=== PATIENT | female | born 1990 | race American Indian/Alaskan Native ===

== ENCOUNTER 2017-11-01 07:53 | Emergency (ER) | payer SELFPAY ==
[2017-11-01] MEDS ORDERED: DUONEB *Not for PRN Use IH ONE ×2 (07:59→08:08)
[2017-11-01 08:08] VITALS: BP 125/70
--- NOTE | 2017-11-01 09:28 | Emergency Department Report ---
ED Asthma HPI - General Chief Complaint: Adult Asthma Stated Complaint: ASTHMA Time Seen by Provider: 11/01/17 08:42 Source: patient Mode of arrival: Ambulatory Limitations: No Limitations - History of Present Illness Initial Comments: This is a 27-year-old -English female who presents with wheezing and shortness of breath for 2 days. Patient has a past medical history of asthma and seasonal allergies. Patient states she felt congestion about 3-4 days ago and started taking Mucinex which improved symptoms for 1 day. Patient states she woke up 2 days ago coughing and feeling short of breath. She is visiting from [place] and ran out of albuterol inhaler this morning. She decided to come in for breathing treatment and for refills of medication. Patient denies fever, chest pain, and nausea or vomiting. MD Complaint: shortness of breath, wheezing Onset/Timin -: days(s) Asthma History: childhood onset, history of prior ED visit Severity: mild Context: ran out of meds, allergen exposure Associated Symptoms: dry cough. denies: productive cough, fever, chest pain, hemoptysis, leg edema, syncope - Related Data Current Asthma Therapy: inhaled bronchodilator Previous Rx's Medication Instructions Recorded Last Taken Type ALBUTEROL Inhaler [ProAir HFA 1 puff IH Q4-6H PRN #1 inha 11/01/17 Unknown Rx Inhaler] Cetirizine HCl [All Day Allergy] 10 mg PO DAILY #30 tablet 11/01/17 Unknown Rx Prednisone [predniSONE 10 mg 10 mg PO .TAPER #1 tab.ds.pk 11/01/17 Unknown Rx (6-Day Pack, 21 Tabs)] Allergies Allergy/AdvReac Type Severity Reaction Status Date / Time No Known Allergies Allergy Verified 11/01/17 08:08 ED Review of Systems ROS: Stated complaint: ASTHMA Other details as noted in HPI Constitutional: denies: chills, fever ENT: congestion. denies: ear pain, throat pain, dental pain, hearing loss, epistaxis Respiratory: cough. denies: shortness of breath, wheezing Cardiovascular: denies: chest pain, palpitations Gastrointestinal: denies: abdominal pain, nausea, vomiting, diarrhea Neurological: denies: headache, weakness, numbness, paresthesias Psychiatric: denies: anxiety, depression ED Past Medical Hx - Past Medical History Previous Medical History?: Yes Hx Asthma: Yes - Surgical History Past Surgical History?: No - Social History Smoking Status: Never Smoker Substance Use Type: None - Medications Home Medications: Home Medications Medication Instructions Recorded Confirmed Last Taken Type ALBUTEROL Inhaler [ProAir HFA 1 puff IH Q4-6H PRN #1 inha 11/01/17 Unknown Rx Inhaler] Cetirizine HCl [All Day Allergy] 10 mg PO DAILY #30 tablet 11/01/17 Unknown Rx Prednisone [predniSONE 10 mg 10 mg PO .TAPER #1 tab.ds.pk 11/01/17 Unknown Rx (6-Day Pack, 21 Tabs)] ED Physical Exam - General Limitations: No Limitations General appearance: alert, in no apparent distress - ENT ENT exam: Present: mucous membranes moist, other (turbinates mildly congested with clear discharge) - Respiratory Respiratory exam: Present: wheezes. Absent: respiratory distress, rales, rhonchi, stridor, chest wall tenderness, accessory muscle use - Cardiovascular Cardiovascular Exam: Present: regular rate, normal rhythm. Absent: systolic murmur, diastolic murmur, rubs, gallop - GI/Abdominal GI/Abdominal exam: Present: soft, normal bowel sounds. Absent: organomegaly, mass - Neurological Exam Neurological exam: Present: alert, oriented X3 - Psychiatric Psychiatric exam: Present: normal affect, normal mood - Skin Skin exam: Present: warm, dry, intact, normal color. Absent: rash ED Course Vital Signs 11/01/17 08:06 Temperature 98 F Pulse Rate 89 Respiratory 22 Rate Blood Pressure 125/70 O2 Sat by Pulse 96 Oximetry ED Medical Decision Making - Medical Decision Making 27 y.o. female that presents with SOB and wheezing for 2 days. History of Asthma. Patient is a visitor from [place] and ran out of inhaler. Patient examined by me and in slight distress. Vitals are normal. Given duoneb treatment once and Solu-medrol 40 mg IM once in ER. Wheezes resolved and sat 96 % on room air. Asthma exacerbation, Start albuterol, prednisone taper, and ceterizine. Discharged home stable. No medication ordered. Return to work tomorrow. Critical care attestation.: If time is entered above; I have spent that time in minutes in the direct care of this critically ill patient, excluding procedure time. ED Disposition Clinical Impression: Asthma Qualifiers: Asthma severity: mild Asthma persistence: intermittent Asthma complication type : with acute exacerbation Qualified Code(s): J45.21 - Mild intermittent asthma with (acute) exacerbation Asthma exacerbation Qualifiers: Asthma severity: mild Asthma persistence: intermittent Qualified Code(s): J45.21 - Mild intermittent asthma with (acute) exacerbation Disposition: TO HOME OR SELFCARE Is pt being admited?: No Does the pt Need Aspirin: No Condition: Stable Instructions: Asthma (ED) Additional Instructions: It is important to use inhaler or have active albuterol inhaler and avoiding asthma triggers. Complete full course of prednisone steroids as prescribed. Follow up with Primary Care Provider in 24-72 hours. Prescriptions: ALBUTEROL Inhaler [ProAir HFA Inhaler] 1 puff IH Q4-6H PRN #1 inha PRN Reason: Shortness Of Breath Cetirizine HCl [All Day Allergy] 10 mg PO DAILY #30 tablet Prednisone [predniSONE 10 mg (6-Day Pack, 21 Tabs)] 10 mg PO .TAPER #1 tab.ds.pk Referrals: [facility]– [place] [Outside] - 3-5 Days [facility] [Outside] - 3-5 Days [facility] [Outside] - 3-5 Days Time of Disposition: 09:32 Print Language: KYRGYZ
[2017-11-01] MEDS ORDERED: SOLU-Medrol IM ONE (09:29)
== END 2017-11-01 10:21 | disposition home or self-care (01) ==
LOC: ED 07:53
DX: J45.21 Mild intermittent asthma with (acute) exacerbation (principal)
CPT/HCPCS: 94640; 96372; 99282; J2920

== ENCOUNTER 2017-11-07 16:44 | Emergency (ER) | payer SELFPAY ==
[2017-11-07 17:13] VITALS: BP 119/90
[2017-11-07] MEDS ORDERED: DUONEB *Not for PRN Use IH ONE (17:15)
== END 2017-11-07 21:08 | disposition left against medical advice (07) ==
LOC: ED 16:44
DX: J06.9 Acute upper respiratory infection, unspecified (principal); Z53.21 Procedure and treatment not carried out due to patient leaving prior to being seen by health care provider
CPT/HCPCS: 94640

== ENCOUNTER 2018-04-12 04:13 | Inpatient (IN) | payer SELFPAY ==
[~2018-04-12 04:13] MED LIST: AMIDATE IV ONE; QUELICIN ONE; VERSED IV ONE
[2018-04-12] MEDS ORDERED: DECADRON ONE (04:28)
[2018-04-12] MEDS ORDERED: VASELINE LIP THERAPY TP PRN (04:31)
[2018-04-12] MEDS ORDERED: ARTIFICIAL TEARS OPHTH OINT OU PRN (04:31)
[2018-04-12] MEDS ORDERED: PROVENTIL IH ONE ×2 (04:34→05:18)
[2018-04-12] MEDS ORDERED: ATROVENT IH ONE (04:34)
--- NOTE | 2018-04-12 04:38 | Emergency Department Report ---
ED General Adult HPI - General Chief complaint: Dyspnea/Respdistress Stated complaint: SUNDEEP Time Seen by Provider: 04/12/18 04:30 Source: family, EMS Mode of arrival: Stretcher Limitations: No Limitations - History of Present Illness Initial comments: Niels is a 28-year-old female past medical history of asthma who presents with respiratory failure. History is limited due to patient's condition. EMS states that patient had an asthma attack she got albuterol and mag in route. Patient is accompanied by her mother. Severity scale (0 -10): 0 - Related Data Previous Rx's Medication Instructions Recorded Last Taken Type ALBUTEROL Inhaler (OR & NICU) 1 puff IH Q4-6H PRN #1 inha 11/01/17 Unknown Rx [ProAir HFA Inhaler] Cetirizine HCl [All Day Allergy] 10 mg PO DAILY #30 tablet 11/01/17 Unknown Rx Prednisone [predniSONE 10 mg 10 mg PO .TAPER #1 tab.ds.pk 11/01/17 Unknown Rx (6-Day Pack, 21 Tabs)] Allergies Allergy/AdvReac Type Severity Reaction Status Date / Time methylprednisolone Allergy Hives Verified 04/12/18 04:33 [From Solu-Medrol] Penicillins Allergy Hives Verified 11/07/17 17:10 ED Review of Systems ROS: Stated complaint: SUNDEEP Other details as noted in HPI Comment: Unobtainable due to pts medical conditions Endocrine: no symptoms reported ED Past Medical Hx - Past Medical History Previous Medical History?: Yes Hx Asthma: Yes - Surgical History Past Surgical History?: No - Social History Smoking Status: Current Some Day Smoker Substance Use Type: Alcohol - Medications Home Medications: Home Medications Medication Instructions Recorded Confirmed Last Taken Type ALBUTEROL Inhaler (OR & NICU) 1 puff IH Q4-6H PRN #1 inha 11/01/17 Unknown Rx [ProAir HFA Inhaler] Cetirizine HCl [All Day Allergy] 10 mg PO DAILY #30 tablet 11/01/17 Unknown Rx Prednisone [predniSONE 10 mg 10 mg PO .TAPER #1 tab.ds.pk 11/01/17 Unknown Rx (6-Day Pack, 21 Tabs)] ED Physical Exam - General Limitations: No Limitations General appearance: obtunded - Head Head exam: Present: atraumatic, normocephalic - Eye Eye exam: Present: normal appearance - ENT ENT exam: Present: other (blood in oral airway ) - Neck Neck exam: Present: normal inspection - Respiratory Respiratory exam: Present: other (diminished breath sound bilaterally) - Cardiovascular Cardiovascular Exam: Present: tachycardia - GI/Abdominal GI/Abdominal exam: Present: soft - Extremities Exam Extremities exam: Present: normal inspection - Back Exam Back exam: Present: normal inspection - Neurological Exam Neurological exam: Present: other (obtunded ) - Psychiatric Psychiatric exam: Present: other (unable to assess) - Skin Skin exam: Present: warm, dry, intact ED Course Vital Signs 04/12/18 04/12/18 04/12/18 04:13 04:15 04:26 Temperature Pulse Rate 103 H 103 H Pulse Rate [ Anterior Bilateral Throughout] Respiratory 24 Rate Respiratory Rate [Anterior Bilateral Throughout] Blood Pressure 149/82 149/82 Blood Pressure 149/82 [Left] O2 Sat by Pulse 98 78 L 77 L Oximetry 04/12/18 04/12/18 04/12/18 04:30 04:46 05:00 Temperature Pulse Rate 82 116 H 124 H Pulse Rate [ 105 H Anterior Bilateral Throughout] Respiratory 9 L 26 H 28 H Rate Respiratory 25 H Rate [Anterior Bilateral Throughout] Blood Pressure 149/82 149/82 Blood Pressure [Left] O2 Sat by Pulse 94 99 93 Oximetry 04/12/18 04/12/18 04/12/18 05:15 05:30 05:45 Temperature Pulse Rate 130 H 139 H 128 H Pulse Rate [ Anterior Bilateral Throughout] Respiratory 28 H 32 H 23 Rate Respiratory Rate [Anterior Bilateral Throughout] Blood Pressure 122/70 142/89 121/77 Blood Pressure [Left] O2 Sat by Pulse 100 96 Oximetry 04/12/18 04/12/18 04/12/18 06:00 06:15 06:20 Temperature 98.0 F Pulse Rate 130 H 135 H Pulse Rate [ Anterior Bilateral Throughout] Respiratory 25 H 26 H Rate Respiratory Rate [Anterior Bilateral Throughout] Blood Pressure 129/73 132/85 Blood Pressure [Left] O2 Sat by Pulse 100 96 100 Oximetry 04/12/18 04/12/18 04/12/18 06:30 06:45 07:00 Temperature Pulse Rate 128 H 127 H 125 H Pulse Rate [ Anterior Bilateral Throughout] Respiratory 26 H 16 26 H Rate Respiratory Rate [Anterior Bilateral Throughout] Blood Pressure 133/79 136/81 134/78 Blood Pressure [Left] O2 Sat by Pulse 99 100 99 Oximetry 04/12/18 04/12/18 04/12/18 07:16 07:28 07:30 Temperature Pulse Rate 124 H 117 H 114 H Pulse Rate [ Anterior Bilateral Throughout] Respiratory 18 14 Rate Respiratory Rate [Anterior Bilateral Throughout] Blood Pressure 132/85 132/85 Blood Pressure [Left] O2 Sat by Pulse 100 100 Oximetry 04/12/18 04/12/18 04/12/18 07:47 08:00 08:12 Temperature Pulse Rate 118 H Pulse Rate [ 115 H Anterior Bilateral Throughout] Respiratory 28 H Rate Respiratory 20 Rate [Anterior Bilateral Throughout] Blood Pressure 129/87 Blood Pressure [Left] O2 Sat by Pulse 99 Oximetry - Intubation Time Out Performed: Yes Sedative: Etomidate Paralytic: Succinylcholine Laryngoscope: Ayden Size: 3 ET Tube Size: 7.5 Tube Secured Depth (cm): 22 Tube Secured Location: lips Tube Placement Confirmation: visualized tube passing t, equal breath sounds bilat, no breath sounds over epi Patient Tolerated Procedure: no complications Intubation Complications: other (ventilation machine wasn't working ) ED Medical Decision Making - Lab Data Result diagrams: 04/12/18 04:28 04/12/18 04:28 Lab Results 04/12/18 04/12/18 04/12/18 Range/Units 04:28 04:28 05:16 WBC 11.9 H (4.5-11.0) K/mm3 RBC 4.65 (3.65-5.03) M/mm3 Hgb 14.7 H (10.1-14.3) gm/dl Hct 44.5 H (30.3-42.9) % MCV 96 (79-97) fl MCH 32 (28-32) pg MCHC 33 (30-34) % RDW 14.0 (13.2-15.2) % Plt Count 325 (140-440) K/mm3 Lymph # Parallel Computing Software Engineer Add Manual Diff Complete Total Counted 100 Seg Neuts % (Manual) 42.0 (40.0-70.0) % Band Neutrophils % 0 % Lymphocytes % (Manual) 43.0 H (13.4-35.0) % Reactive Lymphs % (Man) 0 % Monocytes % (Manual) 8.0 H (0.0-7.3) % Eosinophils % (Manual) 7.0 H (0.0-4.3) % Basophils % (Manual) 0 (0.0-1.8) % Metamyelocytes % 0 % Myelocytes % 0 % Promyelocytes % 0 % Blast Cells % 0 % Nucleated RBC % Not Reportable Seg Neutrophils # Man 5.0 (1.8-7.7) K/mm3 Band Neutrophils # 0.0 K/mm3 Lymphocytes # (Manual) 5.1 (1.2-5.4) K/mm3 Abs React Lymphs (Man) 0.0 K/mm3 Monocytes # (Manual) 1.0 H (0.0-0.8) K/mm3 Eosinophils # (Manual) 0.8 H (0.0-0.4) K/mm3 Basophils # (Manual) 0.0 (0.0-0.1) K/mm3 Metamyelocytes # 0.0 K/mm3 Myelocytes # 0.0 K/mm3 Promyelocytes # 0.0 K/mm3 Blast Cells # 0.0 K/mm3 WBC Morphology Not Reportable Hypersegmented Neuts Not Reportable Hyposegmented Neuts Not Reportable Hypogranular Neuts Not Reportable Smudge Cells Not Reportable Toxic Granulation Not Reportable Toxic Vacuolation Not Reportable Dohle Bodies Not Reportable Pelger-Huet Anomaly Not Reportable Huy Rods Not Reportable Platelet Estimate Appears normal Clumped Platelets Not Reportable Plt Clumps, EDTA Not Reportable Large Platelets Not Reportable Giant Platelets Not Reportable Platelet Satelliting Not Reportable Plt Morphology Comment Not Reportable RBC Morphology Not Reportable Dimorphic RBCs Not Reportable Polychromasia Not Reportable Hypochromasia Not Reportable Poikilocytosis Not Reportable Anisocytosis 1+ Microcytosis Not Reportable Macrocytosis Not Reportable Spherocytes Not Reportable Pappenheimer Bodies Not Reportable Sickle Cells Not Reportable Target Cells Not Reportable Tear Drop Cells Not Reportable Ovalocytes 1+ Helmet Cells Few Valderrama-[place] Bodies Not Reportable [place] Rings Not Reportable [place] Cells Not Reportable Bite Cells Not Reportable Crenated Cell Not Reportable Elliptocytes Not Reportable Acanthocytes (Spur) Not Reportable Rouleaux Not Reportable Hemoglobin C Crystals Not Reportable Schistocytes Not Reportable Malaria parasites Not Reportable Ruben Bodies Not Reportable Hem Pathologist Commnt No POC ABG pH (7.35-7.45) POC ABG pCO2 (35-45) POC ABG pO2 (80-105) POC ABG HCO3 POC ABG Total CO2 POC ABG O2 Sat POC ABG Base Excess FiO2 % Sodium 142 (137-145) mmol/L Potassium 3.7 (3.6-5.0) mmol/L Chloride 102.8 (98-107) mmol/L Carbon Dioxide 20 L (22-30) mmol/L Anion Gap 23 mmol/L BUN 5 L (7-17) mg/dL Creatinine 0.6 L (0.7-1.2) mg/dL Estimated GFR > 60 ml/min BUN/Creatinine Ratio 8 % Glucose 242 H (65-100) mg/dL Lactic Acid 3.90 H* (0.7-2.0) mmol/L Calcium 9.1 (8.4-10.2) mg/dL Total Bilirubin 0.30 (0.1-1.2) mg/dL AST 21 (5-40) units/L ALT 12 (7-56) units/L Alkaline Phosphatase 55 (35-129) units/L Troponin T < 0.010 (0.00-0.029) ng/mL Total Protein 6.8 (6.3-8.2) g/dL Albumin 4.6 (3.9-5) g/dL Albumin/Globulin Ratio 2.1 % 04/12/18 Range/Units 06:03 WBC (4.5-11.0) K/mm3 RBC (3.65-5.03) M/mm3 Hgb (10.1-14.3) gm/dl Hct (30.3-42.9) % MCV (79-97) fl MCH (28-32) pg MCHC (30-34) % RDW (13.2-15.2) % Plt Count (140-440) K/mm3 Lymph # Add Manual Diff Total Counted Seg Neuts % (Manual) (40.0-70.0) % Band Neutrophils % % Lymphocytes % (Manual) (13.4-35.0) % Reactive Lymphs % (Man) % Monocytes % (Manual) (0.0-7.3) % Eosinophils % (Manual) (0.0-4.3) % Basophils % (Manual) (0.0-1.8) % Metamyelocytes % % Myelocytes % % Promyelocytes % % Blast Cells % % Nucleated RBC % Seg Neutrophils # Man (1.8-7.7) K/mm3 Band Neutrophils # K/mm3 Lymphocytes # (Manual) (1.2-5.4) K/mm3 Abs React Lymphs (Man) K/mm3 Monocytes # (Manual) (0.0-0.8) K/mm3 Eosinophils # (Manual) (0.0-0.4) K/mm3 Basophils # (Manual) (0.0-0.1) K/mm3 Metamyelocytes # K/mm3 Myelocytes # K/mm3 Promyelocytes # K/mm3 Blast Cells # K/mm3 WBC Morphology Hypersegmented Neuts Hyposegmented Neuts Hypogranular Neuts Smudge Cells Toxic Granulation Toxic Vacuolation Dohle Bodies Pelger-Huet Anomaly Huy Rods Platelet Estimate Clumped Platelets Plt Clumps, EDTA Large Platelets Giant Platelets Platelet Satelliting Plt Morphology Comment RBC Morphology Dimorphic RBCs Polychromasia Hypochromasia Poikilocytosis Anisocytosis Microcytosis Macrocytosis Spherocytes Pappenheimer Bodies Sickle Cells Target Cells Tear Drop Cells Ovalocytes Helmet Cells Valderrama-[place] Bodies [place] Rings [place] Cells Bite Cells Crenated Cell Elliptocytes Acanthocytes (Spur) Rouleaux Hemoglobin C Crystals Schistocytes Malaria parasites Ruben Bodies Hem Pathologist Commnt POC ABG pH 7.243 L (7.35-7.45) POC ABG pCO2 44.2 (35-45) POC ABG pO2 116 H (80-105) POC ABG HCO3 19.1 POC ABG Total CO2 20 POC ABG O2 Sat 98 POC ABG Base Excess -8 FiO2 60 % Sodium (137-145) mmol/L Potassium (3.6-5.0) mmol/L Chloride (98-107) mmol/L Carbon Dioxide (22-30) mmol/L Anion Gap mmol/L BUN (7-17) mg/dL Creatinine (0.7-1.2) mg/dL Estimated GFR ml/min BUN/Creatinine Ratio % Glucose (65-100) mg/dL Lactic Acid (0.7-2.0) mmol/L Calcium (8.4-10.2) mg/dL Total Bilirubin (0.1-1.2) mg/dL AST (5-40) units/L ALT (7-56) units/L Alkaline Phosphatase (35-129) units/L Troponin T (0.00-0.029) ng/mL Total Protein (6.3-8.2) g/dL Albumin (3.9-5) g/dL Albumin/Globulin Ratio % - EKG Data -: EKG Interpreted by Me - EKG Data 04/12/18 05:56 EKG shows sinus tachycardia no ST segment elevation or T-wave inversion normal access rate 130 - Radiology Data Radiology results: report reviewed, image reviewed - Medical Decision Making Chief medical diagnosis: Respiratory failure secondary to asthma exacerbation Differential medical diagnosis: Pneumothorax, Resipartory distress syndrome I will intubate patient and obtain CBC BMP, cxr IV Decadron I will give IV propofol albuterol Patient is critical but has improved after the breathing treatments patient will be admitted to the ICU discussed with patient's mother discussed it with Dr. Tao. Critical Care Time: Yes Critical care time in (mins) excluding proc time.: 60 Critical care attestation.: If time is entered above; I have spent that time in minutes in the direct care of this critically ill patient, excluding procedure time. Critical care time spent at patient's bedside 30 minutes Critical care time spent patient's family members 10 minutes Critical care time spent reviewing laboratory and imaging findings 20 minutes ED Disposition Clinical Impression: Asthma exacerbation Qualifiers: Asthma severity: severe Asthma persistence: persistent Qualified Code(s): J45.51 - Severe persistent asthma with (acute) exacerbation Respiratory failure Qualifiers: Chronicity: acute Respiratory failure complication: hypoxia and hypercapnia Qualified Code(s): J96.01 - Acute respiratory failure with hypoxia; J96.02 - Acute respiratory failure with hypercapnia Disposition: OP ADMIT IP TO THIS HOSP Is pt being admited?: Yes Does the pt Need Aspirin: No Condition: Stable
[2018-04-12] MEDS ORDERED: SUBLIMAZE IV ONE ×2 (04:41→11:00)
[2018-04-12] MEDS: DIPRIVAN 10 MG/ML 1,000 MG/100 ML BOTTLE IV SCH ×3 (04:50→09:53)
[2018-04-12] MEDS ORDERED: DECADRON IV ONE (04:54)
[2018-04-12] MEDS ORDERED: VERSED IV NR (05:00)
--- NOTE | 2018-04-12 05:06 | XRay Report ---
FINAL REPORT PROCEDURE: XR ABDOMEN 1V AP TECHNIQUE: Abdominal radiograph, single supine AP view. HISTORY: intubation/NG COMPARISON: No prior studies are available for comparison. FINDINGS: Bowel gas pattern:Nonobstructive. Masses or calcifications:None. Bony structures:No significant abnormality. Other:The nasogastric tube ends in the mid stomach. IMPRESSION: The nasogastric tube ends in the stomach.
[2018-04-12] MEDS ORDERED: NACL 0.9% 1000 ML 1,000 ML IV ONE ×2 (05:08→05:09)
--- NOTE | 2018-04-12 05:08 | XRay Report ---
FINAL REPORT PROCEDURE: XR CHEST 1V AP TECHNIQUE: Chest radiograph anteroposterior view. CPT 09273 HISTORY: ETT placement COMPARISON: No prior studies are available for comparison. FINDINGS: Heart: Normal. Mediastinum/Vessels: Normal. Lungs/Pleural space: Normal. Bony thorax: No acute osseous abnormality. Life support devices: The endotracheal tube ends 2 centimeters above the ramin. A nasogastric tube i s looped upon itself in the upper esophagus.. IMPRESSION: There is no evidence of acute infiltrate or effusion. The nasogastric tube is looped upon itself in t he upper esophagus. The endotracheal tube is properly positioned..
[2018-04-12] MEDS ORDERED: HYDROGEN PEROXIDE ONE (05:11)
[2018-04-12 05:20] LABS: Hematocrit 44.5 % (30.3-42.9); Hemoglobin 14.7 gm/dl (10.1-14.3); Mean Corpuscular HGB Conc 33 % (30-34); Mean Corpuscular Volume 96 fl (79-97); Platelet Count 325 K/mm3 (140-440); Red Blood Count 4.65 M/mm3 (3.65-5.03)
--- NOTE | 2018-04-12 05:28 | XRay Report ---
FINAL REPORT PROCEDURE: XR CHEST 1V AP TECHNIQUE: Chest radiograph anteroposterior view. CPT 71788 HISTORY: intubation COMPARISON: No prior studies are available for comparison. FINDINGS: Heart: Normal. Mediastinum/Vessels: Normal. Lungs/Pleural space: Normal. Bony thorax: No acute osseous abnormality. Life support devices: The endotracheal tube ends 4 centimeters above the ramin. IMPRESSION: There is no evidence of an acute infiltrate or effusion. The endotracheal tube ends 4 centimeters abo ve the.
[2018-04-12 05:52] LABS: Alanine Aminotransferase 12 units/L (7-56); Albumin 4.6 g/dL (3.9-5); Anisocytosis 1+; BUN/Creatinine Ratio 8; Basophils % (Manual) 0 % (0.0-1.8); Blood Urea Nitrogen 5 mg/dL (7-17); Calcium 9.1 mg/dL (8.4-10.2); Helmet Cells Few; Hemolysis Index 12; Ovalocytes 1+; Total Cells Counted 100
[2018-04-12] MEDS ORDERED: TYLENOL PO PRN (06:34)
[2018-04-12] MEDS ORDERED: SODIUM CHLORIDE FLUSH SYRINGE 10 ML IV PRN (06:34)
--- NOTE | 2018-04-12 06:41 | History and Physical Report ---
History of Present Illness Date of examination: 04/12/18 History of present illness: History is per the mother. This is 28-year-old woman with a history of asthma comes emergency room with complaints of shortness of breath that started yesterday. Patient has been using her nebulizers with increased frequency without any significant improvement. The mom states EMS was called, and route to the hospital she had respiratory arrest, she was bagged and subsequently intubated in the emergency room. Mother stated 2 weeks ago she went to [place] for asthma exacerbation, she did not fill her prescription of prednisone. Patient had some bleeding from her mouth in the emergency room, she was agitated, unclear if this was from the biting of the tongue or secondary to intubation .Review of systems unobtainable PAST MEDICAL HISTORY: Asthma PAST SURGICAL HISTORY: None SOCIAL HISTORY social alcohol, + marijuana, tobacco FAMILY HISTORY: Hypertension Medications and Allergies Allergies Allergy/AdvReac Type Severity Reaction Status Date / Time methylprednisolone Allergy Hives Verified 04/12/18 04:33 [From Solu-Medrol] Penicillins Allergy Hives Verified 11/07/17 17:10 Home Medications Medication Instructions Recorded Confirmed Last Taken Type ALBUTEROL Inhaler (OR & NICU) 1 puff IH Q4-6H PRN #1 inha 11/01/17 Unknown Rx [ProAir HFA Inhaler] Cetirizine HCl [All Day Allergy] 10 mg PO DAILY #30 tablet 11/01/17 Unknown Rx Prednisone [predniSONE 10 mg 10 mg PO .TAPER #1 tab.ds.pk 11/01/17 Unknown Rx (6-Day Pack, 21 Tabs)] ALBUTEROL Inhaler(NF) [VENTOLIN 1 puff IH QID PRN #1 inha 04/14/18 Unknown Rx Inhaler(NF)] Arformoterol Nebu [Brovana Nebu] 15 mcg IH Q12HRT #60 ml 04/14/18 Unknown Rx Budesonide [Pulmicort Respules] 0.5 mg IH Q12HRT #60 nebu 04/14/18 Unknown Rx Fluticasone [Flonase] 200 mcg NS QDAY #1 bottle 04/14/18 Unknown Rx HYDROcodone/HOMATROP 5-1.5 10 ml PO Q6H PRN 5 Days udc 04/14/18 Unknown Rx [HYDROcodone-Homatropin 5-1.5 mg per 5 ML] Montelukast [Singulair] 10 mg PO QHS 30 Days tablet 04/14/18 Unknown Rx Prednisone [predniSONE 10 mg 10 mg PO .TAPER #1 tab.ds.pk 04/14/18 Unknown Rx (6-Day Pack, 21 Tabs)] Active Meds: Active Medications Acetaminophen (Tylenol) 650 mg PO Q4H PRN PRN Reason: Pain MILD(1-3)/Fever >100.5/BECKHAM Albuterol/Ipratropium (Duoneb *Not For Prn Use*) 1 ampul IH Q6HRT NERY Hydrophilic Ointment (Vaseline Lip Therapy) 1 applic TP Q2HR PRN PRN Reason: Dry Lips Propofol (Diprivan 10 Mg/Ml) 1,000 mg in 100 mls @ 1.74 mls/hr IV TITR NERY; Protocol Last Titration: 04/12/18 05:18 Dose: 10 mcg/kg/min, 3.48 mls/hr Documented by: Levofloxacin/Dextrose (Levaquin 500mg/100ml) 500 mg in 100 mls @ 100 mls/hr IV Q24HR NERY; Protocol Midazolam HCl (Versed) 5 mg IV ONCE NR Stop: 04/12/18 08:00 Multi-Ingred Cream/Lotion/Oil/Oint (Artificial Tears Ophth Oint) 1 applic OU Q4HR PRN PRN Reason: Dry Eye(s) Sodium Chloride (Sodium Chloride Flush Syringe 10 Ml) 10 ml IV BID NERY Sodium Chloride (Sodium Chloride Flush Syringe 10 Ml) 10 ml IV PRN PRN PRN Reason: LINE FLUSH Exam - Physical Exam Narrative exam: General Apperance: The patient lying in bed, breathing comfortable, intubated HEENT: Normocephalic, atraumatic. Pupils equally round and reactive to light, unable to do EOM, no sclericterus or JVD or thyromegaly or nodule. , no carotid bruit, mucous membranes moist, unable to examine oral cavity Heart: S1-S2, regular is rhythm Lungs: Wheezing bilaterally, breathing comfortable Abdomen: Positive bowel sounds, soft, nondistended, no organomegaly Extremities: No edema cyanosis clubbing Skin: no rash, nodule, warm and dry Neuro: Sedated - Constitutional Vitals: Temp Pulse Resp BP Pulse Ox 105 H 25 H 149/82 100 04/12/18 04:30 04/12/18 04:30 04/12/18 04:26 04/12/18 06:20 Results - Labs CBC & Chem 7: 04/14/18 05:03 04/14/18 05:03 Labs: Abnormal lab results 04/12/18 04/12/18 04/12/18 Range/Units 04:28 04:28 05:16 WBC 11.9 H (4.5-11.0) K/mm3 Hgb 14.7 H (10.1-14.3) gm/dl Hct 44.5 H (30.3-42.9) % Lymphocytes % (Manual) 43.0 H (13.4-35.0) % Monocytes % (Manual) 8.0 H (0.0-7.3) % Eosinophils % (Manual) 7.0 H (0.0-4.3) % Monocytes # (Manual) 1.0 H (0.0-0.8) K/mm3 Eosinophils # (Manual) 0.8 H (0.0-0.4) K/mm3 POC ABG pH (7.35-7.45) POC ABG pO2 (80-105) Carbon Dioxide 20 L (22-30) mmol/L BUN 5 L (7-17) mg/dL Creatinine 0.6 L (0.7-1.2) mg/dL Glucose 242 H (65-100) mg/dL Lactic Acid 3.90 H* (0.7-2.0) mmol/L 04/12/18 Range/Units 06:03 WBC (4.5-11.0) K/mm3 Hgb (10.1-14.3) gm/dl Hct (30.3-42.9) % Lymphocytes % (Manual) (13.4-35.0) % Monocytes % (Manual) (0.0-7.3) % Eosinophils % (Manual) (0.0-4.3) % Monocytes # (Manual) (0.0-0.8) K/mm3 Eosinophils # (Manual) (0.0-0.4) K/mm3 POC ABG pH 7.243 L (7.35-7.45) POC ABG pO2 116 H (80-105) Carbon Dioxide (22-30) mmol/L BUN (7-17) mg/dL Creatinine (0.7-1.2) mg/dL Glucose (65-100) mg/dL Lactic Acid (0.7-2.0) mmol/L - Imaging and Cardiology Chest x-ray: report reviewed Abdominal x-ray: report reviewed Assessment and Plan Assessment Acute respiratory failure Asthma exacerbation, acute Bleeding from mouth Plan Admit to medicine Diet nebulizer treatments, for critical care Hold Lovenox for now, monitor hemoglobin Consult critical care, continue sedation Discuss with family at bedside DVT prophylaxis Please follow CT head addendum Will verify reaction from methylprednisolone before starting steroids
[2018-04-12] MEDS: LEVAQUIN 500MG/100ML 500 MG/100 ML BAG IV SCH ×2 (07:25→11:00)
[2018-04-12] MEDS ORDERED: LEVAQUIN 500MG/100ML 500 MG/100 ML BAG IV ONE (07:35)
[2018-04-12] MEDS ORDERED: DUONEB *Not for PRN Use IH SCH (08:00)
[2018-04-12 08:19] LABS: Bacteria,Urine 1+ /HPF (Negative); Bilirubin,Urine NEG (Negative); Blood,Urine NEG (Negative); Color,Urine Yellow (Yellow); Hyaline Casts,Urine 9 /LPF; Mucus,Urine FEW /HPF; Protein,Urine <15 mg/dL mg/dL (Negative); RBC,Urine < 1.0 /HPF (0.0-6.0); Urobilinogen,Urine < 2.0 mg/dL (<2.0)
[2018-04-12] MEDS: SODIUM CHLORIDE FLUSH SYRINGE 10 ML IV SCH ×2 (11:33→21:39)
--- NOTE | 2018-04-12 12:02 | Consultation ---
History of Present Illness Consult date: 04/12/18 Requesting physician: JOSUÉ MARTINEZ Reason for consult: asthma History of present illness: 28 y/o female, with known asthma, non compliant with medication secondary to funding admitted with asthma exacerbation. Per report became unresponsive in the field and required intubation. Extubated this am, awake and alert. Mother at bedside. 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 Also some sick contacts. Past History Past Medical History: other (asthma) Past Surgical History: No surgical history Social history: no significant social history Family history: no significant family history Medications and Allergies Allergies Allergy/AdvReac Type Severity Reaction Status Date / Time methylprednisolone Allergy Hives Verified 04/12/18 04:33 [From Solu-Medrol] Penicillins Allergy Hives Verified 11/07/17 17:10 Home Medications Medication Instructions Recorded Confirmed Last Taken Type ALBUTEROL Inhaler (OR & NICU) 1 puff IH Q4-6H PRN #1 inha 11/01/17 Unknown Rx [ProAir HFA Inhaler] Cetirizine HCl [All Day Allergy] 10 mg PO DAILY #30 tablet 11/01/17 Unknown Rx Prednisone [predniSONE 10 mg 10 mg PO .TAPER #1 tab.ds.pk 11/01/17 Unknown Rx (6-Day Pack, 21 Tabs)] Active Meds: Active Medications Acetaminophen (Tylenol) 650 mg PO Q4H PRN PRN Reason: Pain MILD(1-3)/Fever >100.5/BECKHAM Albuterol (Proventil) 2.5 mg IH Q4HRT PRN PRN Reason: Shortness Of Breath Arformoterol Tartrate (Brovana Nebu) 15 mcg IH Q12HRT NERY Budesonide (Pulmicort) 0.5 mg IH Q12HRT NERY Fluticasone Propionate (Flonase) 200 mcg NS QDAY NERY Hydrophilic Ointment (Vaseline Lip Therapy) 1 applic TP Q2HR PRN PRN Reason: Dry Lips Levofloxacin/Dextrose (Levaquin 500mg/100ml) 500 mg in 100 mls @ 100 mls/hr IV Q24HR [facility]; Protocol Last Admin: 04/12/18 07:25 Dose: 100 mls/hr Documented by: Methylprednisolone Sodium Succinate (Solu-Medrol) 60 mg IV Q6HR NERY Montelukast Sodium (Singulair) 10 mg PO QHS NERY Multi-Ingred Cream/Lotion/Oil/Oint (Artificial Tears Ophth Oint) 1 applic OU Q4HR PRN PRN Reason: Dry Eye(s) Sodium Chloride (Sodium Chloride Flush Syringe 10 Ml) 10 ml IV BID [facility] Last Admin: 04/12/18 11:33 Dose: 10 ml Documented by: Sodium Chloride (Sodium Chloride Flush Syringe 10 Ml) 10 ml IV PRN PRN PRN Reason: LINE FLUSH Review of Systems All systems: negative Physical Examination Vital signs: Vital Signs Pulse BP Pulse Ox 103 H 149/82 98 04/12/18 04:13 04/12/18 04:13 04/12/18 04:13 General appearance: no acute distress, alert, appears uncomfortable Eyes: non-icteric ENT: oropharynx dry Neck: supple Effort: mildly labored Ascultation: Bilateral: rhonchi Percussion: Bilateral: not dull Tactile fremitus: Bilateral: normal Cardiovascular: regular rate and rhythm Gastrointestinal: normoactive bowel sounds Extremities: no edema, pink and warm, pulses normal normal mental status, non-focal exam Results - Laboratory Findings CBC and BMP: 04/12/18 04:28 04/12/18 04:28 ABG POC ABG pH 7.243 (7.35-7.45) L 04/12/18 06:03 POC ABG pCO2 44.2 (35-45) 04/12/18 06:03 POC ABG pO2 116 (80-105) H 04/12/18 06:03 POC ABG HCO3 19.1 04/12/18 06:03 POC ABG Total CO2 20 04/12/18 06:03 POC ABG O2 Sat 98 04/12/18 06:03 Abnormal lab findings: Abnormal Labs 04/12/18 04/12/18 04/12/18 04:28 04:28 05:16 WBC 11.9 H Hgb 14.7 H Hct 44.5 H Lymphocytes % (Manual) 43.0 H Monocytes % (Manual) 8.0 H Eosinophils % (Manual) 7.0 H Monocytes # (Manual) 1.0 H Eosinophils # (Manual) 0.8 H POC ABG pH POC ABG pO2 Carbon Dioxide 20 L BUN 5 L Creatinine 0.6 L Glucose 242 H Lactic Acid 3.90 H* 04/12/18 06:03 WBC Hgb Hct Lymphocytes % (Manual) Monocytes % (Manual) Eosinophils % (Manual) Monocytes # (Manual) Eosinophils # (Manual) POC ABG pH 7.243 L POC ABG pO2 116 H Carbon Dioxide BUN Creatinine Glucose Lactic Acid - Diagnostic Findings Chest x-ray: image reviewed (Hyperinflation with clear lung roblero.) Assessment and Plan 28 y/o female with acute respiratory failure secondary to asthma exacerbation, now extubated. 1. Solumedrol 60q6 2. Pulmicort and brovana BID 3. Q4H Albuterol treatments 4. Singulair 5. supplemental O2 6. Needs CM consult to help with funding and possible drug programs to help obtain necessary medications. Keep in ICU for the next 24 hours, should be stable enough to transfer out tomorrow.
[2018-04-12] MEDS: PROVENTIL IH PRN ×2 (12:07→15:13)
[2018-04-12] MEDS: PULMICORT IH SCH ×2 (13:06→20:55)
[2018-04-12] MEDS: BROVANA NEBU IH SCH ×2 (13:06→20:55)
[2018-04-12] MEDS: SOLU-Medrol IV SCH ×2 (13:20→18:11)
[2018-04-12] MEDS ORDERED: CHLORASEPTIC MM PRN ×2 (13:29→14:49)
[2018-04-12] MEDS ORDERED: BENADRYL ONE (13:39)
[2018-04-12] MEDS: FLONASE NS SCH (13:45)
--- NOTE | 2018-04-12 14:41 | Progress Note ---
Assessment and Plan Total Time Spent with Patient (Minutes): 33 - Patient Problems (1) Asthma exacerbation Current Visit: Yes Status: Acute Plan to address problem: Status post acute hypoxic respiratory failure secondary to asthma exacerbation. Intubated now extubated. Appears to be stable with current extubation status. Still has wheezing and some decreased air entry. Seems to have responded to Solu-Medrol and oxygen and nebulizer treatments. Patient started on LABA and Singulair and Pulmicort. Given patient's recent improvement should be obtained discharge from ICU in the a.m. Clinically still has significant wheezing and decreased breath sounds at this point. Recently extubated approximately 1 hour ago (2) Throat pain in adult Current Visit: Yes Status: Acute Plan to address problem: Was likely secondary to emergent intubation. We'll start Chloraseptic. We'll patient able to gargle with viscous lidocaine. We'll also add Percocet when necessary for throat pain. Family at the bedside does not want patient to take morphine or Dilaudid. History Interval history: Patient 28 years old with a history of asthma. Patient has had asthma since the age of 6 and has been intubated recently. He should found to be unresponsive in the field intubated and now is currently extubated. Patient mother and family at the bedside and all questions and concerns answered to their satisfaction. Patient hospital course complicated by allergic reaction to Solu-Medrol, sore throat status post extubation/intubation. Hospitalist Physical - Constitutional Vitals: Temp Pulse Resp BP Pulse Ox 98.0 F 116 H 21 129/87 97 04/12/18 06:00 04/12/18 13:16 04/12/18 13:16 04/12/18 08:12 04/12/18 10:55 General appearance: Present: no acute distress - EENT Eyes: Present: PERRL, EOM intact. Absent: irregular pupil, scleral icterus, conjunctival injection, exopthalmos ENT: hearing intact, clear oral mucosa, dentition normal, no poor dentition, no thrush, no ulcerations - Neck Neck: Present: supple, normal ROM. Absent: rigidity, enlarged thyroid, masses or JVD, cervical LAD, carotid bruits - Respiratory Respiratory effort: other Respiratory: bilateral: diminished, rhonchi, wheezing, negative: other (coarse wheezing fair air entry) - Cardiovascular Rhythm: regular Heart Sounds: Present: S1 & S2 - Extremities Extremities: no ischemia, pulses intact, pulses symmetrical, No edema, normal temperature, normal color Peripheral Pulses: within normal limits - Abdominal General gastrointestinal: soft, non-tender, non-distended, normal bowel sounds, no hypoactive bowel sounds, no absent bowel sounds, no hepatomegaly, no splenomegaly, no mass - Integumentary Integumentary: Present: clear, warm, dry - Psychiatric Psychiatric: appropriate mood/affect, intact judgment & insight, cooperative, no agitated, no depressed - Neurologic Neurologic: CNII-XII intact, no focal deficits, moves all extremities Results - Labs CBC & Chem 7: 04/12/18 04:28 04/12/18 04:28 Labs: Laboratory Last Values WBC 11.9 K/mm3 (4.5-11.0) H 04/12/18 04:28 RBC 4.65 M/mm3 (3.65-5.03) 04/12/18 04:28 Hgb 14.7 gm/dl (10.1-14.3) H 04/12/18 04:28 Hct 44.5 % (30.3-42.9) H 04/12/18 04:28 MCV 96 fl (79-97) 04/12/18 04:28 MCH 32 pg (28-32) 04/12/18 04:28 MCHC 33 % (30-34) 04/12/18 04:28 RDW 14.0 % (13.2-15.2) 04/12/18 04:28 Plt Count 325 K/mm3 (140-440) 04/12/18 04:28 Lymph # Photoengraver 04/12/18 04:28 Add Manual Diff Complete 04/12/18 04:28 Total Counted 100 04/12/18 04:28 Seg Neuts % (Manual) 42.0 % (40.0-70.0) 04/12/18 04:28 Band Neutrophils % 0 % 04/12/18 04:28 Lymphocytes % (Manual) 43.0 % (13.4-35.0) H 04/12/18 04:28 Reactive Lymphs % (Man) 0 % 04/12/18 04:28 Monocytes % (Manual) 8.0 % (0.0-7.3) H 04/12/18 04:28 Eosinophils % (Manual) 7.0 % (0.0-4.3) H 04/12/18 04:28 Basophils % (Manual) 0 % (0.0-1.8) 04/12/18 04:28 Metamyelocytes % 0 % 04/12/18 04:28 Myelocytes % 0 % 04/12/18 04:28 Promyelocytes % 0 % 04/12/18 04:28 Blast Cells % 0 % 04/12/18 04:28 Nucleated RBC % Not Reportable 04/12/18 04:28 Seg Neutrophils # Man 5.0 K/mm3 (1.8-7.7) 04/12/18 04:28 Band Neutrophils # 0.0 K/mm3 04/12/18 04:28 Lymphocytes # (Manual) 5.1 K/mm3 (1.2-5.4) 04/12/18 04:28 Abs React Lymphs (Man) 0.0 K/mm3 04/12/18 04:28 Monocytes # (Manual) 1.0 K/mm3 (0.0-0.8) H 04/12/18 04:28 Eosinophils # (Manual) 0.8 K/mm3 (0.0-0.4) H 04/12/18 04:28 Basophils # (Manual) 0.0 K/mm3 (0.0-0.1) 04/12/18 04:28 Metamyelocytes # 0.0 K/mm3 04/12/18 04:28 Myelocytes # 0.0 K/mm3 04/12/18 04:28 Promyelocytes # 0.0 K/mm3 04/12/18 04:28 Blast Cells # 0.0 K/mm3 04/12/18 04:28 WBC Morphology Not Reportable 04/12/18 04:28 Hypersegmented Neuts Not Reportable 04/12/18 04:28 Hyposegmented Neuts Not Reportable 04/12/18 04:28 Hypogranular Neuts Not Reportable 04/12/18 04:28 Smudge Cells Not Reportable 04/12/18 04:28 Toxic Granulation Not Reportable 04/12/18 04:28 Toxic Vacuolation Not Reportable 04/12/18 04:28 Dohle Bodies Not Reportable 04/12/18 04:28 Pelger-Huet Anomaly Not Reportable 04/12/18 04:28 Huy Rods Not Reportable 04/12/18 04:28 Platelet Estimate Appears normal 04/12/18 04:28 Clumped Platelets Not Reportable 04/12/18 04:28 Plt Clumps, EDTA Not Reportable 04/12/18 04:28 Large Platelets Not Reportable 04/12/18 04:28 Giant Platelets Not Reportable 04/12/18 04:28 Platelet Satelliting Not Reportable 04/12/18 04:28 Plt Morphology Comment Not Reportable 04/12/18 04:28 RBC Morphology Not Reportable 04/12/18 04:28 Dimorphic RBCs Not Reportable 04/12/18 04:28 Polychromasia Not Reportable 04/12/18 04:28 Hypochromasia Not Reportable 04/12/18 04:28 Poikilocytosis Not Reportable 04/12/18 04:28 Anisocytosis 1+ 04/12/18 04:28 Microcytosis Not Reportable 04/12/18 04:28 Macrocytosis Not Reportable 04/12/18 04:28 Spherocytes Not Reportable 04/12/18 04:28 Pappenheimer Bodies Not Reportable 04/12/18 04:28 Sickle Cells Not Reportable 04/12/18 04:28 Target Cells Not Reportable 04/12/18 04:28 Tear Drop Cells Not Reportable 04/12/18 04:28 Ovalocytes 1+ 04/12/18 04:28 Helmet Cells Few 04/12/18 04:28 [place] Bodies Not Reportable 04/12/18 04:28 [place] Rings Not Reportable 04/12/18 04:28 Ortiz Cells Not Reportable 04/12/18 04:28 Bite Cells Not Reportable 04/12/18 04:28 Crenated Cell Not Reportable 04/12/18 04:28 Elliptocytes Not Reportable 04/12/18 04:28 Acanthocytes (Spur) Not Reportable 04/12/18 04:28 Rouleaux Not Reportable 04/12/18 04:28 Hemoglobin C Crystals Not Reportable 04/12/18 04:28 Schistocytes Not Reportable 04/12/18 04:28 Malaria parasites Not Reportable 04/12/18 04:28 Ruben Bodies Not Reportable 04/12/18 04:28 Hem Pathologist Commnt No 04/12/18 04:28 D-Dimer 193.13 ng/mlDDU (0-234) 04/12/18 11:59 POC ABG pH 7.243 (7.35-7.45) L 04/12/18 06:03 POC ABG pCO2 44.2 (35-45) 04/12/18 06:03 POC ABG pO2 116 (80-105) H 04/12/18 06:03 POC ABG HCO3 19.1 04/12/18 06:03 POC ABG Total CO2 20 04/12/18 06:03 POC ABG O2 Sat 98 04/12/18 06:03 POC ABG Base Excess -8 04/12/18 06:03 FiO2 60 % 04/12/18 06:03 Sodium 142 mmol/L (137-145) 04/12/18 04:28 Potassium 3.7 mmol/L (3.6-5.0) 04/12/18 04:28 Chloride 102.8 mmol/L (98-107) 04/12/18 04:28 Carbon Dioxide 20 mmol/L (22-30) L 04/12/18 04:28 Anion Gap 23 mmol/L 04/12/18 04:28 BUN 5 mg/dL (7-17) L 04/12/18 04:28 Creatinine 0.6 mg/dL (0.7-1.2) L 04/12/18 04:28 Estimated GFR > 60 ml/min 04/12/18 04:28 BUN/Creatinine Ratio 8 % 04/12/18 04:28 Glucose 242 mg/dL (65-100) H 04/12/18 04:28 Lactic Acid 3.60 mmol/L (0.7-2.0) H* 04/12/18 11:59 Calcium 9.1 mg/dL (8.4-10.2) 04/12/18 04:28 Total Bilirubin 0.30 mg/dL (0.1-1.2) 04/12/18 04:28 AST 21 units/L (5-40) 04/12/18 04:28 ALT 12 units/L (7-56) 04/12/18 04:28 Alkaline Phosphatase 55 units/L (35-129) 04/12/18 04:28 Troponin T < 0.010 ng/mL (0.00-0.029) 04/12/18 04:28 Total Protein 6.8 g/dL (6.3-8.2) 04/12/18 04:28 Albumin 4.6 g/dL (3.9-5) 04/12/18 04:28 Albumin/Globulin Ratio 2.1 % 04/12/18 04:28 Urine Color Yellow (Yellow) 04/12/18 07:27 Urine Turbidity Clear (Clear) 04/12/18 07:27 Urine pH 5.0 (5.0-7.0) 04/12/18 07:27 Ur Specific [place] 1.009 (1.003-1.030) 04/12/18 07:27 Urine Protein <15 mg/dl mg/dL (Negative) 04/12/18 07:27 Urine Glucose (UA) 50 mg/dL (Negative) 04/12/18 07:27 Urine Ketones Neg mg/dL (Negative) 04/12/18 07:27 Urine Blood Neg (Negative) 04/12/18 07:27 Urine Nitrite Neg (Negative) 04/12/18 07:27 Urine Bilirubin Neg (Negative) 04/12/18 07:27 Urine Urobilinogen < 2.0 mg/dL (<2.0) 04/12/18 07:27 Ur Leukocyte Esterase Neg (Negative) 04/12/18 07:27 Urine WBC (Auto) 2.0 /HPF (0.0-6.0) 04/12/18 07:27 Urine RBC (Auto) < 1.0 /HPF (0.0-6.0) 04/12/18 07:27 U Epithel Cells (Auto) 1.0 /HPF (0-13.0) 04/12/18 07:27 Urine Bacteria (Auto) 1+ /HPF (Negative) 04/12/18 07:27 Hyaline Casts 9 /LPF 04/12/18 07:27 Urine Mucus Few /HPF 04/12/18 07:27 - Imaging and Cardiology EKG: image reviewed Chest x-ray: report reviewed, image reviewed Nutrition/Malnutrition Assess - Attestation Statement I have reviewed and agreed w/ Malnutrition eval & tx plan: No
[2018-04-12] MEDS ORDERED: PERCOCET 5/325 PO PRN (14:46)
[2018-04-12] MEDS: DELTASONE PO SCH ×2 (17:00→21:37)
[2018-04-12] MEDS: BENADRYL IV SCH (20:21)
[2018-04-12] MEDS: SINGULAIR PO SCH (21:37)
[2018-04-13] MEDS: BENADRYL IV SCH ×4 (01:52→22:14)
[2018-04-13 05:29] LABS: Hematocrit 41.8 % (30.3-42.9); Hemoglobin 13.9 gm/dl (10.1-14.3); Mean Corpuscular HGB Conc 33 % (30-34); Mean Corpuscular Volume 92 fl (79-97); Platelet Count 282 K/mm3 (140-440); Red Blood Count 4.53 M/mm3 (3.65-5.03); Red Cell Distribution Width 13.6 % (13.2-15.2)
[2018-04-13 05:30] LABS: BUN/Creatinine Ratio 12; Blood Urea Nitrogen 7 mg/dL (7-17); Calcium 8.8 mg/dL (8.4-10.2); Hemolysis Index 5
[2018-04-13 06:00] LABS: Basophils % (Manual) 0 % (0.0-1.8); Eosinophils % (Manual) 0 % (0.0-4.3); Monocytes % (Manual) 0 % (0.0-7.3); Total Cells Counted 100
[2018-04-13 06:01] LABS: Anisocytosis 1+; Burr Cells Few; Platelet Estimate Consistent w Auto
[2018-04-13] MEDS: PULMICORT IH SCH ×2 (07:40→20:55)
[2018-04-13] MEDS: BROVANA NEBU IH SCH ×2 (07:40→20:57)
[2018-04-13] MEDS ORDERED: ROBITUSSIN AC PO PRN (08:58)
--- NOTE | 2018-04-13 09:00 | Progress Note ---
Assessment and Plan Assessment and plan: Patient 28 years old with a history of asthma. Patient has had asthma since the age of 6 and has been intubated recently. He should found to be unresponsive in the field intubated and now is currently extubated. Patient mother and family at the bedside and all questions and concerns answered to their satisfaction. Patient hospital course complicated by allergic reaction to Solu-Medrol, sore throat status post extubation/intubation. - Patient Problems (1) Asthma exacerbation Current Visit: Yes Status: Acute Plan to address problem: Status post acute hypoxic respiratory failure secondary to asthma exacerbation. Extubated. Still has wheezing and some decreased air entry. Seems to have responded to prednisone. patient allergic to solumedrol and oxygen and nebulizer treatments. Patient started on LABA and Singulair and Pulmicort. . Clinically still has significant wheezing and decreased breath sounds at this point. Recently extubated approximately 1 hour ago (2) Throat pain in adult Current Visit: Yes Status: Acute Plan to address problem: Was likely secondary to emergent intubation. We'll start Chloraseptic. We'll patient able to gargle with viscous lidocaine. We'll also add Percocet when necessary for throat pain. Family at the bedside does not want patient to take morphine or Dilaudid. Add Hydromet and also Robitussion AC (3) Hoarseness: Stable, no evidence of stridor, will improve. 4- PATIENT ADVOCACY INFORMATION GIVEN TO FAMILY ON THEIR REQUEST History Interval history: Patient seen and examined, still with wheezing, complaining about the getting intubated without giving consent and also mother complained about EMS treatment and security. Otherwise patient reports some improvement except for throat pain, some relief with the cholerseptic but felt better with hydromet Hospitalist Physical - Physical exam Narrative exam: VITAL SIGNS: Reviewed. GENERAL: The patient appeared well nourished and normally developed. Vital signs as documented. HEAD: No signs of head trauma. EYES: Pupils are equal. Extraocular motions intact. EARS: Hearing grossly intact. MOUTH: Oropharynx is normal. Hoarse NECK: No adenopathy, no JVD. CHEST: Chest with wheezing breath sounds bilaterally. No, rales, or rhonchi. CARDIAC: Regular rate and rhythm. S1 and S2, without murmurs, gallops, or rubs. VASCULAR: No Edema. Peripheral pulses normal and equal in all extremities. ABDOMEN: Soft, without detectable tenderness. No sign of distention. No rebound or guarding, and no masses palpated. Bowel Sounds normal. MUSCULOSKELETAL: Good range of motion of all major joints. Extremities without clubbing, cyanosis or edema. NEUROLOGIC EXAM: Alert and oriented x 3. No focal sensory or strength deficits. Speech normal. Follows commands. PSYCHIATRIC: Mood normal. SKIN: No rash or lesions. - Constitutional Vitals: Temp Pulse Resp BP Pulse Ox 98.0 F 97 H 17 116/62 99 04/13/18 08:34 04/13/18 08:00 04/13/18 08:00 04/13/18 08:00 04/13/18 08:00 General appearance: Present: no acute distress Results - Labs CBC & Chem 7: 04/14/18 05:03 04/14/18 05:03 Labs: Laboratory Last Values WBC 14.2 K/mm3 (4.5-11.0) H 04/13/18 04:00 RBC 4.53 M/mm3 (3.65-5.03) 04/13/18 04:00 Hgb 13.9 gm/dl (10.1-14.3) 04/13/18 04:00 Hct 41.8 % (30.3-42.9) 04/13/18 04:00 MCV 92 fl (79-97) 04/13/18 04:00 MCH 31 pg (28-32) 04/13/18 04:00 MCHC 33 % (30-34) 04/13/18 04:00 RDW 13.6 % (13.2-15.2) 04/13/18 04:00 Plt Count 282 K/mm3 (140-440) 04/13/18 04:00 Lymph # Business Technology Professor 04/12/18 04:28 Add Manual Diff Complete 04/13/18 04:00 Total Counted 100 04/13/18 04:00 Seg Neutrophils % Business Technology Professor 04/13/18 04:00 Seg Neuts % (Manual) 98.0 % (40.0-70.0) H 04/13/18 04:00 Band Neutrophils % 0 % 04/13/18 04:00 Lymphocytes % (Manual) 2.0 % (13.4-35.0) L 04/13/18 04:00 Reactive Lymphs % (Man) 0 % 04/13/18 04:00 Monocytes % (Manual) 0 % (0.0-7.3) 04/13/18 04:00 Eosinophils % (Manual) 0 % (0.0-4.3) 04/13/18 04:00 Basophils % (Manual) 0 % (0.0-1.8) 04/13/18 04:00 Metamyelocytes % 0 % 04/13/18 04:00 Myelocytes % 0 % 04/13/18 04:00 Promyelocytes % 0 % 04/13/18 04:00 Blast Cells % 0 % 04/13/18 04:00 Nucleated RBC % Not Reportable 04/13/18 04:00 Seg Neutrophils # Man 13.9 K/mm3 (1.8-7.7) H 04/13/18 04:00 Band Neutrophils # 0.0 K/mm3 04/13/18 04:00 Lymphocytes # (Manual) 0.3 K/mm3 (1.2-5.4) L 04/13/18 04:00 Abs React Lymphs (Man) 0.0 K/mm3 04/13/18 04:00 Monocytes # (Manual) 0.0 K/mm3 (0.0-0.8) 04/13/18 04:00 Eosinophils # (Manual) 0.0 K/mm3 (0.0-0.4) 04/13/18 04:00 Basophils # (Manual) 0.0 K/mm3 (0.0-0.1) 04/13/18 04:00 Metamyelocytes # 0.0 K/mm3 04/13/18 04:00 Myelocytes # 0.0 K/mm3 04/13/18 04:00 Promyelocytes # 0.0 K/mm3 04/13/18 04:00 Blast Cells # 0.0 K/mm3 04/13/18 04:00 WBC Morphology Not Reportable 04/13/18 04:00 Hypersegmented Neuts Not Reportable 04/13/18 04:00 Hyposegmented Neuts Not Reportable 04/13/18 04:00 Hypogranular Neuts Not Reportable 04/13/18 04:00 Smudge Cells Not Reportable 04/13/18 04:00 Toxic Granulation Not Reportable 04/13/18 04:00 Toxic Vacuolation Not Reportable 04/13/18 04:00 Dohle Bodies Not Reportable 04/13/18 04:00 Pelger-Huet Anomaly Not Reportable 04/13/18 04:00 Huy Rods Not Reportable 04/13/18 04:00 Platelet Estimate Consistent w auto 04/13/18 04:00 Clumped Platelets Not Reportable 04/13/18 04:00 Plt Clumps, EDTA Not Reportable 04/13/18 04:00 Large Platelets Not Reportable 04/13/18 04:00 Giant Platelets Not Reportable 04/13/18 04:00 Platelet Satelliting Not Reportable 04/13/18 04:00 Plt Morphology Comment Not Reportable 04/13/18 04:00 RBC Morphology Not Reportable 04/13/18 04:00 Dimorphic RBCs Not Reportable 04/13/18 04:00 Polychromasia Not Reportable 04/13/18 04:00 Hypochromasia Not Reportable 04/13/18 04:00 Poikilocytosis Not Reportable 04/13/18 04:00 Anisocytosis 1+ 04/13/18 04:00 Microcytosis Not Reportable 04/13/18 04:00 Macrocytosis Not Reportable 04/13/18 04:00 Spherocytes Not Reportable 04/13/18 04:00 Pappenheimer Bodies Not Reportable 04/13/18 04:00 Sickle Cells Not Reportable 04/13/18 04:00 Target Cells Not Reportable 04/13/18 04:00 Tear Drop Cells Not Reportable 04/13/18 04:00 Ovalocytes Not Reportable 04/13/18 04:00 Helmet Cells Not Reportable 04/13/18 04:00 Val[place] Bodies Not Reportable 04/13/18 04:00 [place] Rings Not Reportable 04/13/18 04:00 [place] Cells Few 04/13/18 04:00 Bite Cells Not Reportable 04/13/18 04:00 Crenated Cell Not Reportable 04/13/18 04:00 Elliptocytes Not Reportable 04/13/18 04:00 Acanthocytes (Spur) Not Reportable 04/13/18 04:00 Rouleaux Not Reportable 04/13/18 04:00 Hemoglobin C Crystals Not Reportable 04/13/18 04:00 Schistocytes Not Reportable 04/13/18 04:00 Malaria parasites Not Reportable 04/13/18 04:00 Ruben Bodies Not Reportable 04/13/18 04:00 Hem Pathologist Commnt No 04/13/18 04:00 D-Dimer 193.13 ng/mlDDU (0-234) 04/12/18 11:59 POC ABG pH 7.243 (7.35-7.45) L 04/12/18 06:03 POC ABG pCO2 44.2 (35-45) 04/12/18 06:03 POC ABG pO2 116 (80-105) H 04/12/18 06:03 POC ABG HCO3 19.1 04/12/18 06:03 POC ABG Total CO2 20 04/12/18 06:03 POC ABG O2 Sat 98 04/12/18 06:03 POC ABG Base Excess -8 04/12/18 06:03 FiO2 60 % 04/12/18 06:03 Sodium 142 mmol/L (137-145) 04/13/18 04:00 Potassium 3.9 mmol/L (3.6-5.0) 04/13/18 04:00 Chloride 107.6 mmol/L (98-107) H 04/13/18 04:00 Carbon Dioxide 18 mmol/L (22-30) L 04/13/18 04:00 Anion Gap 20 mmol/L 04/13/18 04:00 BUN 7 mg/dL (7-17) 04/13/18 04:00 Creatinine 0.6 mg/dL (0.7-1.2) L 04/13/18 04:00 Estimated GFR > 60 ml/min 04/13/18 04:00 BUN/Creatinine Ratio 12 % 04/13/18 04:00 Glucose 101 mg/dL (65-100) H 04/13/18 04:00 POC Glucose 151 (70-105) H 04/12/18 18:07 Lactic Acid 3.60 mmol/L (0.7-2.0) H* 04/12/18 11:59 Calcium 8.8 mg/dL (8.4-10.2) 04/13/18 04:00 Total Bilirubin 0.30 mg/dL (0.1-1.2) 04/12/18 04:28 AST 21 units/L (5-40) 04/12/18 04:28 ALT 12 units/L (7-56) 04/12/18 04:28 Alkaline Phosphatase 55 units/L (35-129) 04/12/18 04:28 Troponin T < 0.010 ng/mL (0.00-0.029) 04/12/18 04:28 Total Protein 6.8 g/dL (6.3-8.2) 04/12/18 04:28 Albumin 4.6 g/dL (3.9-5) 04/12/18 04:28 Albumin/Globulin Ratio 2.1 % 04/12/18 04:28 Urine Color Yellow (Yellow) 04/12/18 07:27 Urine Turbidity Clear (Clear) 04/12/18 07:27 Urine pH 5.0 (5.0-7.0) 04/12/18 07:27 Ur Specific [place] 1.009 (1.003-1.030) 04/12/18 07:27 Urine Protein <15 mg/dl mg/dL (Negative) 04/12/18 07:27 Urine Glucose (UA) 50 mg/dL (Negative) 04/12/18 07:27 Urine Ketones Neg mg/dL (Negative) 04/12/18 07:27 Urine Blood Neg (Negative) 04/12/18 07:27 Urine Nitrite Neg (Negative) 04/12/18 07:27 Urine Bilirubin Neg (Negative) 04/12/18 07:27 Urine Urobilinogen < 2.0 mg/dL (<2.0) 04/12/18 07:27 Ur Leukocyte Esterase Neg (Negative) 04/12/18 07:27 Urine WBC (Auto) 2.0 /HPF (0.0-6.0) 04/12/18 07:27 Urine RBC (Auto) < 1.0 /HPF (0.0-6.0) 04/12/18 07:27 U Epithel Cells (Auto) 1.0 /HPF (0-13.0) 04/12/18 07:27 Urine Bacteria (Auto) 1+ /HPF (Negative) 04/12/18 07:27 Hyaline Casts 9 /LPF 04/12/18 07:27 Urine Mucus Few /HPF 04/12/18 07:27 Nutrition/Malnutrition Assess - Dietary Evaluation Nutrition/Malnutrition Findings: Nutrition Notes Start: 04/12/18 15:53 Freq: Status: Active Protocol: Document 04/12/18 15:53 NHALL (Rec: 04/12/18 15:56 MAX SRW- [id number]) Nutrition Notes Need for Assessment generated from: MD Order Initial or Follow up Assessment Other Pertinent Diagnosis SUNDEEP Current Diet NPO Labs/Tests CO2 - 20 BG 242 Pertinent Medications Propofol at 17.4ml/hr ( provides 459 kcal from lipids) Height 5 ft 5 in Weight 58 kg [place] Body Weight (lbs) 125.0 BMI 21.2 Weight Status Appropriate Subjective/Other Information RD consulted to evaluate nutritional intake. Pt currently intubated and NPO. Burn Absent Trauma Absent #1 Nutrition Diagnosis Inadequate oral intake Etiology [facility] ventilation As Evidenced by Signs and Symptoms pt NPO Is patient on ventilator? Yes Is Patient Ambulatory and/or Out of Bed No REE-([facility]confined [facility] bed) 0940.301 Calculation Used for Recommendations [facility] Additional Notes Pro needs 1.2-2g/k-116g/ day Fluid needs 1ml/kcal Nutrition Intervention Change Diet Order: Diet advancement when medically feasible Goal #1 Advance diet to meet nutrient needs Anticipated Discharge Needs: None identified at this time Follow-Up By: 04/15/18 Additional Comments F/U: diet advancement, vent status
--- NOTE | 2018-04-13 09:56 | Progress Note ---
Assessment and Plan 28 y/o female with acute respiratory failure secondary to asthma exacerbation, now extubated. 1. Continue Prednisone 60 BID. Will need long slow taper over two weeks time. 2. Pulmicort and brovana BID, pending funding should either be discharged on this or the inhaler form. Will need CM to help with this. 3. Q4H Albuterol treatments for now, can likely space out to q6 or q8 4. Singulair 5. supplemental O2, wean for sats >88% 6. Needs CM consult to help with funding and possible drug programs to help obtain necessary medications. 7. Agree with transfer out of unit. Family (mother) will not let you actually speak with patient at times. Difficult to obtain adequate history at times without interference. Would allow them to chose where they would like to follow up. Mother works at [employer] and may have a physician already in mind. Patient has had multiple hospital stays and several different hospitals for asthma. Subjective Date of service: 04/13/18 Interval history: Patient is truly allergic to solumedrol. Broke out in [facility] on yesterday. Av rated Prednisone therapy and is on it BID now. Objective Vital Signs - 12hr 04/12/18 04/12/18 04/12/18 22:00 22:30 23:00 Temperature Pulse Rate 110 H 107 H 104 H Pulse Rate [ Anterior Bilateral Throughout] Pulse Rate [ From Monitor] Respiratory 18 17 16 Rate Respiratory Rate [Anterior Bilateral Throughout] Blood Pressure 105/64 102/63 102/63 O2 Sat by Pulse 98 Oximetry 04/12/18 04/12/18 04/13/18 23:26 23:30 00:00 Temperature 100.3 F H Pulse Rate 103 H 101 H Pulse Rate [ Anterior Bilateral Throughout] Pulse Rate [ From Monitor] Respiratory 17 17 Rate Respiratory Rate [Anterior Bilateral Throughout] Blood Pressure 115/70 118/69 O2 Sat by Pulse 96 Oximetry 04/13/18 04/13/18 04/13/18 00:06 00:30 01:00 Temperature Pulse Rate 98 H 100 H 95 H Pulse Rate [ Anterior Bilateral Throughout] Pulse Rate [ From Monitor] Respiratory 18 17 22 Rate Respiratory Rate [Anterior Bilateral Throughout] Blood Pressure 115/70 112/66 114/72 O2 Sat by Pulse 96 92 94 Oximetry 04/13/18 04/13/18 04/13/18 01:30 02:00 02:30 Temperature Pulse Rate 99 H 99 H 106 H Pulse Rate [ Anterior Bilateral Throughout] Pulse Rate [ From Monitor] Respiratory 16 19 20 Rate Respiratory Rate [Anterior Bilateral Throughout] Blood Pressure 121/75 123/75 112/73 O2 Sat by Pulse 94 97 Oximetry 04/13/18 04/13/18 04/13/18 03:00 03:24 03:30 Temperature 99 F Pulse Rate 95 H 99 H Pulse Rate [ Anterior Bilateral Throughout] Pulse Rate [ From Monitor] Respiratory 20 15 Rate Respiratory Rate [Anterior Bilateral Throughout] Blood Pressure 112/73 132/81 O2 Sat by Pulse 95 95 Oximetry 04/13/18 04/13/18 04/13/18 04:00 04:30 05:00 Temperature Pulse Rate 90 92 H 93 H Pulse Rate [ Anterior Bilateral Throughout] Pulse Rate [ 97 H From Monitor] Respiratory 15 17 27 H Rate Respiratory Rate [Anterior Bilateral Throughout] Blood Pressure 132/77 126/73 113/63 O2 Sat by Pulse 97 96 99 Oximetry 04/13/18 04/13/18 04/13/18 05:30 06:00 06:30 Temperature Pulse Rate 92 H 88 88 Pulse Rate [ Anterior Bilateral Throughout] Pulse Rate [ From Monitor] Respiratory 15 16 14 Rate Respiratory Rate [Anterior Bilateral Throughout] Blood Pressure 110/55 123/85 112/67 O2 Sat by Pulse 95 99 93 Oximetry 04/13/18 04/13/18 04/13/18 07:00 07:30 07:39 Temperature Pulse Rate 84 84 Pulse Rate [ Anterior Bilateral Throughout] Pulse Rate [ From Monitor] Respiratory 13 12 Rate Respiratory Rate [Anterior Bilateral Throughout] Blood Pressure 110/64 116/62 O2 Sat by Pulse 97 81 L 100 Oximetry 04/13/18 04/13/18 04/13/18 07:40 07:55 08:00 Temperature Pulse Rate 97 H Pulse Rate [ 91 H 100 H Anterior Bilateral Throughout] Pulse Rate [ From Monitor] Respiratory 17 Rate Respiratory 20 16 Rate [Anterior Bilateral Throughout] Blood Pressure 116/62 O2 Sat by Pulse 99 Oximetry 04/13/18 08:34 Temperature 98.0 F Pulse Rate Pulse Rate [ Anterior Bilateral Throughout] Pulse Rate [ From Monitor] Respiratory Rate Respiratory Rate [Anterior Bilateral Throughout] Blood Pressure O2 Sat by Pulse Oximetry Constitutional: no acute distress, alert, appears uncomfortable Eyes: non-icteric ENT: oropharynx dry Neck: supple Effort: mildly labored Ascultation: Bilateral: rhonchi Percussion: Bilateral: not dull Tactile fremitus: Bilateral: normal Cardiovascular: regular rate and rhythm Gastrointestinal: normoactive bowel sounds Extremities: no edema, pink and warm, pulses normal Neurologic: normal mental status, non-focal exam CBC and BMP: 04/13/18 04:00 04/13/18 04:00 ABG, PT/INR, D-dimer: ABG POC ABG pH 7.243 (7.35-7.45) L 04/12/18 06:03 POC ABG pCO2 44.2 (35-45) 04/12/18 06:03 POC ABG pO2 116 (80-105) H 04/12/18 06:03 POC ABG HCO3 19.1 04/12/18 06:03 POC ABG Total CO2 20 04/12/18 06:03 POC ABG O2 Sat 98 04/12/18 06:03 PT/INR, D-dimer D-Dimer 193.13 ng/mlDDU (0-234) 04/12/18 11:59 Abnormal lab findings: Abnormal Labs 04/12/18 04/12/18 04/12/18 04:28 04:28 05:16 WBC 11.9 H Hgb 14.7 H Hct 44.5 H Seg Neuts % (Manual) Lymphocytes % (Manual) 43.0 H Monocytes % (Manual) 8.0 H Eosinophils % (Manual) 7.0 H Seg Neutrophils # Man Lymphocytes # (Manual) Monocytes # (Manual) 1.0 H Eosinophils # (Manual) 0.8 H POC ABG pH POC ABG pO2 Chloride Carbon Dioxide 20 L BUN 5 L Creatinine 0.6 L Glucose 242 H POC Glucose Lactic Acid 3.90 H* 04/12/18 04/12/18 04/12/18 06:03 11:59 18:07 WBC Hgb Hct Seg Neuts % (Manual) Lymphocytes % (Manual) Monocytes % (Manual) Eosinophils % (Manual) Seg Neutrophils # Man Lymphocytes # (Manual) Monocytes # (Manual) Eosinophils # (Manual) POC ABG pH 7.243 L POC ABG pO2 116 H Chloride Carbon Dioxide BUN Creatinine Glucose POC Glucose 151 H Lactic Acid 3.60 H* 04/13/18 04/13/18 04:00 04:00 WBC 14.2 H Hgb Hct Seg Neuts % (Manual) 98.0 H Lymphocytes % (Manual) 2.0 L Monocytes % (Manual) Eosinophils % (Manual) Seg Neutrophils # Man 13.9 H Lymphocytes # (Manual) 0.3 L Monocytes # (Manual) Eosinophils # (Manual) POC ABG pH POC ABG pO2 Chloride 107.6 H Carbon Dioxide 18 L BUN Creatinine 0.6 L Glucose 101 H POC Glucose Lactic Acid
[2018-04-13] MEDS ORDERED: NON-FORMULARY (Cetirizine Hcl [All Day Allergy] 10 MG) PO SCH (10:00)
[2018-04-13] MEDS: DELTASONE PO SCH ×2 (11:03→22:15)
[2018-04-13] MEDS: LEVAQUIN 500MG/100ML 500 MG/100 ML BAG IV SCH (11:04)
[2018-04-13] MEDS: FLONASE NS SCH (11:04)
[2018-04-13] MEDS: CLARITIN PO SCH (11:05)
[2018-04-13] MEDS: SODIUM CHLORIDE FLUSH SYRINGE 10 ML IV SCH ×2 (11:26→22:15)
[2018-04-13] MEDS: HYDROMET PO PRN ×2 (15:10→22:13)
[2018-04-13] MEDS: SINGULAIR PO SCH (22:14)
[2018-04-14] MEDS: BENADRYL IV SCH ×2 (02:23→12:17)
[2018-04-14 05:51] LABS: Hematocrit 46.4 % (30.3-42.9); Hemoglobin 15.6 gm/dl (10.1-14.3); Mean Corpuscular HGB Conc 34 % (30-34); Mean Corpuscular Volume 93 fl (79-97); Platelet Count 294 K/mm3 (140-440); Red Blood Count 4.97 M/mm3 (3.65-5.03); Red Cell Distribution Width 13.7 % (13.2-15.2)
[2018-04-14 06:08] LABS: BUN/Creatinine Ratio 17; Blood Urea Nitrogen 12 mg/dL (7-17); Calcium 9.6 mg/dL (8.4-10.2); Hemolysis Index 7
[2018-04-14 07:52] VITALS: BP 102/61
[2018-04-14] MEDS: PULMICORT IH SCH (07:55)
[2018-04-14] MEDS: BROVANA NEBU IH SCH (07:55)
[2018-04-14] MEDS: DELTASONE PO SCH (12:26)
[2018-04-14] MEDS: FLONASE NS SCH (12:26)
[2018-04-14] MEDS: CLARITIN PO SCH (12:26)
[2018-04-14] MEDS: LEVAQUIN 500MG/100ML 500 MG/100 ML BAG IV SCH (12:27)
[2018-04-14] MEDS: SODIUM CHLORIDE FLUSH SYRINGE 10 ML IV SCH (12:27)
[2018-04-14] MEDS: HYDROMET PO PRN (13:13)
--- NOTE | 2018-04-14 13:59 | Discharge Summary ---
Providers - Providers Date of Admission: 04/12/18 06:56 Attending physician: BAILEE SIMONS MD 04/12/18 04:31 Consult to Dietitian/Nutrition [CONS] Routine Physician Instructions: Reason For Exam: Reason for Consult: Evaluate nutritional intake Consult to Physician [CONS] Stat Comment: Consulting Provider: JACQUELIN BLACK Physician Instructions: Reason For Exam: ventilation 04/12/18 04:36 Consult to Dietitian/Nutrition [CONS] Routine Physician Instructions: Reason For Exam: Reason for Consult: Evaluate nutritional intake 04/13/18 08:53 Consult to Case Management [CONS] Routine Services Needed at Discharge: Manager Of Internal Notified:: mental health case managershared services manager physician: LEXI JUAREZ Hospitalization Reason for admission: ASTHMA EXACERBATION Condition: Stable Hospital course: Patient 28 years old with a history of asthma. Patient has had asthma since the age of 6 and has been intubated recently. He should found to be unresponsive in the field intubated and now is currently extubated. Patient mother and family at the bedside and all questions and concerns answered to their satisfaction. Patient hospital course complicated by allergic reaction to Solu- Medrol, sore throat status post extubation/intubation. PATEINT WAS SWITCHED TO PREDNISON DUE TO ALLERGY TO SOLUMDEROL SHE WAS EXTUBATED AND CONTINUED TO IMPROVE AND WILL BE DISCHARGED ON LONG TAPER. EXTENSIVE INFORMATION WAS PROVIDED TO PATIENT AND FAMILY ABOUT OUTPATIENT FOLLOW UP AND NEED FOR THIS. PATIENT WAS ALSO GIVEN COUNSELLING ON TOBACCO CESSATION Per Pulmonary recommendation Rec: 1. Agree w/ long prednisone taper as per Dr. Black's prior notes; would strongly consider staying on a low-dose such as 10mg daily after the taper is completed until f/u with MD in the office; mother states she will arrange f/u for patient, understands the importance of doing so 2. Agree w/ Pulmicort/Brovana, versus Advair BID if she can afford; advised her to check drug websites so she can apply for patient assistance 3. Re: hoarseness/sore throat, I suspect this will improve with time; there is no stridor or evidence of upper airway obstruction/issues on exam; mother is rudely demanding an ENT consult but I do not believe they round at [facility] anymore; recommended close outpatient ENT f/u, they expressed understanding Discharge diagnosis 1. Severe persistent asthma with acute exac. 2. Acute respiratory failure, hypoxia and hypercapnea 3. Hoarseness/sore throat due to ET tube 4. Lactic acidosis 2/2 #'s 1 and 2 Disposition: DC-01 TO HOME OR SELFCARE Time spent for discharge: 35 mins Core Measure Documentation - Palliative Care Palliative Care/ Comfort Measures: Not Applicable - Core Measures Any of the following diagnoses?: none Exam - Physical Exam Narrative exam: VITAL SIGNS: Reviewed. GENERAL: The patient appeared well nourished and normally developed. Vital signs as documented. HEAD: No signs of head trauma. EYES: Pupils are equal. Extraocular motions intact. EARS: Hearing grossly intact. MOUTH: Oropharynx is normal. Hoarse NECK: No adenopathy, no JVD. CHEST: Chest with clear to ascultatin still mild baseline wheezing much improved compared to yesterday. CARDIAC: Regular rate and rhythm. S1 and S2, without murmurs, gallops, or rubs. VASCULAR: No Edema. Peripheral pulses normal and equal in all extremities. ABDOMEN: Soft, without detectable tenderness. No sign of distention. No rebound or guarding, and no masses palpated. Bowel Sounds normal. MUSCULOSKELETAL: Good range of motion of all major joints. Extremities without clubbing, cyanosis or edema. NEUROLOGIC EXAM: Alert and oriented x 3. No focal sensory or strength deficits. Speech normal. Follows commands. PSYCHIATRIC: Mood normal. SKIN: No rash or lesions. - Constitutional Vitals: Temp Pulse Resp BP Pulse Ox 98.1 F 77 20 102/61 98 04/14/18 05:01 04/14/18 05:01 04/14/18 05:01 04/14/18 05:01 04/14/18 07:55 Plan Activity: advance as tolerated, fall precautions Diet: regular Special Instructions: smoking cessation Additional Instructions: Also give infor to the [facility]. PCP to give referral to Pulmonary Follow up with: LEXI JUAREZ MD [Primary Care Provider] - 3-5 Days [facility] [Outside] - 7 Days MIRIAN SHAW MD [Staff Physician] - 7 Days Prescriptions: Montelukast [Singulair] 10 mg PO QHS 30 Days tablet ALBUTEROL Inhaler(NF) [VENTOLIN Inhaler(NF)] 1 puff IH QID PRN #1 inha PRN Reason: Wheezing Arformoterol Nebu [Brovana Nebu] 15 mcg IH Q12HRT #60 ml Budesonide [Pulmicort Respules] 0.5 mg IH Q12HRT #60 nebu Fluticasone [Flonase] 200 mcg NS QDAY #1 bottle HYDROcodone/HOMATROP 5-1.5 [HYDROcodone-Homatropin 5-1.5 mg per 5 ML] 10 ml PO Q6H PRN 5 Days udc PRN Reason: Cough NOT RELIEVED BY ROBIT. Prednisone [predniSONE 10 mg (6-Day Pack, 21 Tabs)] 10 mg PO .TAPER #1 tab.ds.pk Other Discharge Orders: Nebulizer (Amb) Location: None Selected
--- NOTE | 2018-04-14 14:37 | Progress Note ---
Assessment and Plan Imp: 1. Severe persistent asthma with acute exac. 2. Acute respiratory failure, hypoxia and hypercapnea 3. Hoarseness/sore throat due to ET tube 4. Lactic acidosis 2/2 #'s 1 and 2 Rec: 1. Agree w/ long prednisone taper as per Dr. Black's prior notes; would strongly consider staying on a low-dose such as 10mg daily after the taper is completed until f/u with MD in the office; mother states she will arrange f/u for patient, understands the importance of doing so 2. Agree w/ Pulmicort/Brovana, versus Advair BID if she can afford; advised her to check drug websites so she can apply for patient assistance 3. Re: hoarseness/sore throat, I suspect this will improve with time; there is no stridor or evidence of upper airway obstruction/issues on exam; mother is rudely demanding an ENT consult but I do not believe they round at [facility] anymore; recommended close outpatient ENT f/u, they expressed understanding 4. 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 Interval history: No events. SOB near baseline. No wheezing. Still with hoarseness and sore throat which is her primary complaint. Active Medications Acetaminophen (Tylenol) 650 mg PO Q4H PRN PRN Reason: Pain MILD(1-3)/Fever >100.5/BECKHAM Albuterol (Proventil) 2.5 mg IH Q4HRT PRN PRN Reason: Shortness Of Breath Last Admin: 04/12/18 15:13 Dose: 2.5 mg Documented by: Arformoterol Tartrate (Brovana Nebu) 15 mcg IH Q12HRT [facility] Last Admin: 04/14/18 07:55 Dose: Not Given Documented by: Budesonide (Pulmicort) 0.5 mg IH Q12HRT [facility] Last Admin: 04/14/18 07:55 Dose: Not Given Documented by: Diphenhydramine HCl (Benadryl) 50 mg IV Q6H [facility] Last Admin: 04/14/18 12:17 Dose: Not Given Documented by: Fluticasone Propionate (Flonase) 200 mcg NS QDAY [facility] Last Admin: 04/14/18 12:26 Dose: 200 mcg Documented by: Hydrocodone Bit/Homatropine Methylb (Hydromet) 10 ml PO Q6H PRN PRN Reason: Cough NOT RELIEVED BY ROBIT. Last Admin: 04/14/18 13:13 Dose: 10 ml Documented by: Levofloxacin/Dextrose (Levaquin 500mg/100ml) 500 mg in 100 mls @ 100 mls/hr IV Q24HR [facility]; Protocol Last Admin: 04/14/18 12:27 Dose: 100 mls/hr Documented by: Loratadine (Claritin) 10 mg PO DAILY [facility] Last Admin: 04/14/18 12:26 Dose: 10 mg Documented by: Montelukast Sodium (Singulair) 10 mg PO QHS [facility] Last Admin: 04/13/18 22:14 Dose: 10 mg Documented by: Oxycodone/Acetaminophen (Percocet 5/325) 1 tab PO Q8H PRN PRN Reason: Pain, Moderate (4-6) Last Admin: 04/12/18 17:53 Dose: 1 tab Documented by: Phenol (Chloraseptic) 1 spray MM PRN PRN PRN Reason: Sore Throat Prednisone (Deltasone) 60 mg PO BID [facility] Last Admin: 04/14/18 12:26 Dose: 60 mg Documented by: Pseudoephedrine/Acetam/Chlorphenir (Robitussin Ac) 10 ml PO Q4H PRN PRN Reason: Cough Last Admin: 04/13/18 11:03 Dose: 10 ml Documented by: Sodium Chloride (Sodium Chloride Flush Syringe 10 Ml) 10 ml IV BID [facility] Last Admin: 04/14/18 12:27 Dose: 10 ml Documented by: Sodium Chloride (Sodium Chloride Flush Syringe 10 Ml) 10 ml IV PRN PRN PRN Reason: LINE FLUSH Objective Vital Signs - 12hr 04/14/18 04/14/18 05:01 07:55 Temperature 98.1 F Pulse Rate 77 Respiratory 20 Rate Blood Pressure 102/61 O2 Sat by Pulse 89 98 Oximetry Constitutional: no acute distress, alert Eyes: non-icteric ENT: oropharynx moist Neck: supple Effort: normal Ascultation: Bilateral: clear Cardiovascular: regular rate and rhythm (no mrg) Gastrointestinal: normoactive bowel sounds, soft, non-tender, non-distended Integumentary: normal Extremities: no cyanosis, no edema, pink and warm, pulses normal Neurologic: normal mental status, non-focal exam, pupils equal and round, CN II- XII normal Psychiatric: mood appropriate, affect normal CBC and BMP: 04/14/18 05:03 04/14/18 05:03 ABG, PT/INR, D-dimer: ABG POC ABG pH 7.243 (7.35-7.45) L 04/12/18 06:03 POC ABG pCO2 44.2 (35-45) 04/12/18 06:03 POC ABG pO2 116 (80-105) H 04/12/18 06:03 POC ABG HCO3 19.1 04/12/18 06:03 POC ABG Total CO2 20 04/12/18 06:03 POC ABG O2 Sat 98 04/12/18 06:03 PT/INR, D-dimer D-Dimer 193.13 ng/mlDDU (0-234) 04/12/18 11:59 Abnormal lab findings: Abnormal Labs 04/12/18 04/12/18 04/12/18 04:28 04:28 05:16 WBC 11.9 H Hgb 14.7 H Hct 44.5 H Seg Neuts % (Manual) Lymphocytes % (Manual) 43.0 H Monocytes % (Manual) 8.0 H Eosinophils % (Manual) 7.0 H Seg Neutrophils # Man Lymphocytes # (Manual) Monocytes # (Manual) 1.0 H Eosinophils # (Manual) 0.8 H POC ABG pH POC ABG pO2 Chloride Carbon Dioxide 20 L BUN 5 L Creatinine 0.6 L Glucose 242 H POC Glucose Lactic Acid 3.90 H* 04/12/18 04/12/18 04/12/18 06:03 11:59 18:07 WBC Hgb Hct Seg Neuts % (Manual) Lymphocytes % (Manual) Monocytes % (Manual) Eosinophils % (Manual) Seg Neutrophils # Man Lymphocytes # (Manual) Monocytes # (Manual) Eosinophils # (Manual) POC ABG pH 7.243 L POC ABG pO2 116 H Chloride Carbon Dioxide BUN Creatinine Glucose POC Glucose 151 H Lactic Acid 3.60 H* 04/13/18 04/13/18 04/14/18 04:00 04:00 05:03 WBC 14.2 H 15.8 H Hgb 15.6 H Hct 46.4 H Seg Neuts % (Manual) 98.0 H Lymphocytes % (Manual) 2.0 L Monocytes % (Manual) Eosinophils % (Manual) Seg Neutrophils # Man 13.9 H Lymphocytes # (Manual) 0.3 L Monocytes # (Manual) Eosinophils # (Manual) POC ABG pH POC ABG pO2 Chloride 107.6 H Carbon Dioxide 18 L BUN Creatinine 0.6 L Glucose 101 H POC Glucose Lactic Acid 04/14/18 05:03 WBC Hgb Hct Seg Neuts % (Manual) Lymphocytes % (Manual) Monocytes % (Manual) Eosinophils % (Manual) Seg Neutrophils # Man Lymphocytes # (Manual) Monocytes # (Manual) Eosinophils # (Manual) POC ABG pH POC ABG pO2 Chloride Carbon Dioxide BUN Creatinine Glucose 112 H POC Glucose Lactic Acid Chest x-ray: report reviewed, image reviewed
== END 2018-04-14 17:50 | disposition home or self-care (01) | DRG 208 ==
LOC: ED 04:13 → CC1 06:56 → 4A 04-13 13:12
PROVIDERS: ADMIT Internal Medicine; ATTEND Internal Medicine
PROC: 5A1935Z Respiratory Ventilation, Less than 24 Consecutive Hours (ICD-10-PCS; principal; 2018-04-12)
PROC: 0BH17EZ Insertion of Endotracheal Airway into Trachea, Via Natural or Artificial Opening (ICD-10-PCS; 2018-04-12)
PROC: 4A033R1 Measurement of Arterial Saturation, Peripheral, Percutaneous Approach (ICD-10-PCS; 2018-04-12)
DX: J96.01 Acute respiratory failure with hypoxia (principal); J45.51 Severe persistent asthma with (acute) exacerbation; E87.2 Acidosis; J96.02 Acute respiratory failure with hypercapnia; F17.200 Nicotine dependence, unspecified, uncomplicated; R07.0 Pain in throat; R49.0 Dysphonia; F12.90 Cannabis use, unspecified, uncomplicated; Z82.49 Family history of ischemic heart disease and other diseases of the circulatory system; Z88.8 Allergy status to other drugs, medicaments and biological substances; Z79.51 Long term (current) use of inhaled steroids; Z79.899 Other long term (current) drug therapy; Z88.0 Allergy status to penicillin; Z91.14 Patient's other noncompliance with medication regimen; Z71.6 Tobacco abuse counseling
CPT/HCPCS: 36415; 71045; 74018; 80048; 80053; 81001; 82140; 82803; 82962; 84484; 85007; 85025; 85027; 85379; 87070; 87205; 93005; 93010; 94002; 94640; 94644; 94760; G0378; J0330; J1100; J1200; J1956; J2250; J2704; J2930; J3010; J7030; J7512